=== PATIENT | male | born 1955 | race Caucasian/White ===

== ENCOUNTER 2024-08-04 13:58 | Outpatient (CLI) | payer MEDICARE, OTHER ==
[~2024-08-04] VITALS: Ht 195.6 cm; Wt 117.9 kg
[2024-08-04] MEDS: albuterol 2.5 MG/3 ML nebule NEB ONE (14:50)
[2024-08-04 14:51] VITALS: PULSE 61; RESP 18; O2SAT 93
[2024-08-04 15:04] VITALS: PULSE 62; RESP 16
--- NOTE | 2024-08-07 13:49 | PROCEDURE NOTE - Respiratory ---
Procedure Note-Respiratory Providers to CC Copies To 1: DIMAS FIGUEROA; ANU MARTINEZ MD Procedure Name: This is a spirometry study dated August 04, 2024. The spirometry study was performed both before and after inhaled bronchodilator. Spirometry measurements: The forced vital capacity is normal. The FEV1 is clearly reduced. The FEV1 ratio is also reduced. All of the measured flow rates are substantially reduced. After inhaled bronchodilator there is small but significant improvement in the FEV1 and the flow rate measurements. Overall conclusion: This study shows abnormality. There is evidence for moderate severity obstructive ventilatory defect. The patient improved slightly with inhaled bronchodilator. 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 Bronchodilator therapy will very likely help this patient. This patient should abstain from cigarette smoking and avoid secondhand smoke as well. We have no previous studies for comparison. ОЛЬГА KING MD Aug 07, 2024 13:49
== END 2024-08-04 23:59 | disposition home or self-care (01) ==
LOC: RT 13:58
PROVIDERS: ATTEND Physician Assistant
DX: J44.9 Chronic obstructive pulmonary disease, unspecified (principal); R06.02 Shortness of breath
CPT/HCPCS: 94060; 94760